=== PATIENT | female | born 1960 | race Caucasian/White ===

== ENCOUNTER 2020-02-12 08:46 | Outpatient (CLI) | payer OTHER, SELFPAY ==
[2020-02-12 09:15] LABS: Basophils Absolute Auto 0.1 K/mm3 (0.0-0.1); Basophils Percent Auto 0.8 % (0.2-1.2); Eosinophils Absolute Auto 0.1 K/mm3 (0-0.3); Eosinophils Percent Auto 2.1 % (0-4.4); Hematocrit 41.5 % (37.0-47.0); Hemoglobin 13.8 g/dL (12.0-15.0); Immature Granulocyte Absolute 0.02 K/mm3 (0.00-0.031); Immature Granulocyte Percent A 0.3 % (0-0.5); Lymphocytes Absolute Auto 1.99 K/mm3 (0.9-3.2); Lymphocytes Percent Auto 32.6 % (18.3-44.2); Mean Corpuscular HGB Conc 33.3 g/dl (32-36); Mean Corpuscular Hemoglobin 30.2 pg (26-34); Mean Corpuscular Volume 90.8 fl (80-100); Mean Platelet Volume 10.6 fl (7.4-10.4); Monocytes Absolute Auto 0.5 K/mm3 (0.1-0.6); Monocytes Percent Auto 7.7 % (2.6-8.5); Neutrophils Absolute Auto 3.5 K/mm3 (1.3-6.7); Neutrophils Percent Auto 56.5 % (45.5-73.1); Platelet Count Result 209 k/mm3 (150-375); Red Blood Count 4.57 M/mm3 (4.2-5.4); Red Cell Distribution Width 13.3 % (11.5-14.5); White Blood Count 6.1 K/mm3 (4.5-10.0)
[2020-02-12 09:20] LABS: Alanine Aminotransferase 17 U/L (4-35); Albumin Level 3.9 g/dL (3.5-5.1); Alkaline Phosphatase 107 U/L (38-126); Anion Gap 6 mmol/L (8-16); Aspartate Amino Transferase 24 U/L (14-36); Bilirubin,Total 0.5 mg/dL (0.2-1.3); Blood Urea Nitrogen 14 mg/dL (7-17); Calcium 9.5 mg/dL (8.4-10.2); Carbon Dioxide 29 mmol/L (22-30); Chloride 106 mmol/L (98-107); Cholesterol 262 mg/dL (0-200); Estimated Glomerular Filt Rate > 60; Glucose 99 mg/dL (65-105); HDL Direct 44 mg/dL; Potassium 3.9 mmol/L (3.4-5.0); Sodium 141 mmol/L (137-145); Triglycerides 121 mg/dL (<150)
[2020-02-12 09:31] LABS: LDL Cholesterol Direct 177 mg/dL
[2020-02-12 09:51] LABS: Thyroid Stimulating Hormone 0.131 uIU/mL (0.465-4.680)
[2020-02-12 10:02] LABS: Free T4 Free Thyroxine 1.14 ng/mL (0.78-2.19)
== END 2020-02-12 08:47 | disposition home or self-care (01) ==
PROVIDERS: PCP Family Medicine; Visit Provider Family Medicine
DX: R60.9 Edema, unspecified (principal); I10 Essential (primary) hypertension; F33.0 Major depressive disorder, recurrent, mild; E11.69 Type 2 diabetes mellitus with other specified complication; E78.2 Mixed hyperlipidemia; Z79.899 Other long term (current) drug therapy
CPT/HCPCS: 36415; 80053; 80061; 84439; 84443; 85025

== ENCOUNTER 2020-08-08 10:20 | Outpatient (CLI) | payer OTHER, SELFPAY ==
[2020-08-08 11:03] LABS: Alanine Aminotransferase 41 U/L (4-35); Aspartate Amino Transferase 39 U/L (14-36); Cholesterol 288 mg/dL (0-200); HDL Direct 47 mg/dL; Triglycerides 163 mg/dL (<150)
[2020-08-08 11:14] LABS: LDL Cholesterol Direct 203 mg/dL
== END 2020-08-08 10:21 | disposition home or self-care (01) ==
LOC: ANHLAB 10:22
PROVIDERS: PCP Family Medicine; Visit Provider Physician Assistant
DX: E78.5 Hyperlipidemia, unspecified (principal)
CPT/HCPCS: 36415; 80061; 84450; 84460

== ENCOUNTER 2021-09-24 10:46 | Outpatient (CLI) | payer OTHER, SELFPAY ==
[2021-09-24 11:56] LABS: Basophils Percent Auto 0.6 % (0.2-1.2); Eosinophils Absolute Auto 0.2 K/mm3 (0-0.3); Eosinophils Percent Auto 2.3 % (0-4.4); Hematocrit 41.4 % (37.0-47.0); Hemoglobin 13.1 g/dL (12.0-15.0); Immature Granulocyte Absolute 0.02 K/mm3 (0.00-0.031); Immature Granulocyte Percent A 0.3 % (0-0.5); Lymphocytes Absolute Auto 1.79 K/mm3 (0.9-3.2); Lymphocytes Percent Auto 27.5 % (18.3-44.2); Mean Corpuscular HGB Conc 31.6 g/dl (32-36); Mean Corpuscular Hemoglobin 29.2 pg (26-34); Mean Corpuscular Volume 92.2 fl (80-100); Mean Platelet Volume 11.2 fl (7.4-10.4); Monocytes Absolute Auto 0.5 K/mm3 (0.1-0.6); Monocytes Percent Auto 7.1 % (2.6-8.5); Neutrophils Absolute Auto 4.1 K/mm3 (1.3-6.7); Neutrophils Percent Auto 62.2 % (45.5-73.1); Platelet Count Result 264 k/mm3 (150-375); Red Blood Count 4.49 M/mm3 (4.2-5.4); Red Cell Distribution Width 12.4 % (11.5-14.5); White Blood Count 6.5 K/mm3 (4.5-10.0)
[2021-09-24 12:06] LABS: Alanine Aminotransferase 17 U/L (6-35); Albumin Level 3.8 g/dL (3.5-5.1); Alkaline Phosphatase 89 U/L (38-126); Anion Gap 3 mmol/L (8-16); Aspartate Amino Transferase 24 U/L (14-36); Bilirubin,Total 0.4 mg/dL (0.2-1.3); Blood Urea Nitrogen 7 mg/dL (7-17); Calcium 9.1 mg/dL (8.4-10.2); Carbon Dioxide 30 mmol/L (22-30); Chloride 105 mmol/L (98-107); Cholesterol 218 mg/dL (0-200); Estimated Glomerular Filt Rate > 60; Glucose 94 mg/dL (65-110); HDL Direct 40 mg/dL; Potassium 4.4 mmol/L (3.4-5.0); Sodium 138 mmol/L (137-145); Triglycerides 91 mg/dL (<150)
[2021-09-24 12:18] LABS: LDL Cholesterol Direct 132 mg/dL
[2021-09-24 12:36] LABS: Thyroid Stimulating Hormone < 0.015 uIU/mL (0.465-4.680)
[2021-09-24 12:40] LABS: Free T4 Free Thyroxine 2.49 ng/mL (0.78-2.19)
== END 2021-09-24 10:47 | disposition home or self-care (01) ==
LOC: ANHLAB 10:48
PROVIDERS: PCP Family Medicine; Visit Provider Family Medicine
DX: E03.9 Hypothyroidism, unspecified (principal); E78.5 Hyperlipidemia, unspecified; I10 Essential (primary) hypertension; Z79.899 Other long term (current) drug therapy
CPT/HCPCS: 36415; 80053; 80061; 84439; 84443; 85025

== ENCOUNTER 2021-11-12 09:48 | Outpatient (CLI) | payer OTHER, SELFPAY ==
[2021-11-12 10:46] LABS: Thyroid Stimulating Hormone 0.042 uIU/mL (0.465-4.680)
[2021-11-12 11:01] LABS: Free T4 Free Thyroxine 1.28 ng/mL (0.78-2.19)
== END 2021-11-12 09:49 | disposition home or self-care (01) ==
LOC: ANHLAB 09:50
PROVIDERS: PCP Family Medicine; Visit Provider Family Medicine
DX: E03.9 Hypothyroidism, unspecified (principal)
CPT/HCPCS: 36415; 84439; 84443

== ENCOUNTER 2022-03-27 09:58 | Outpatient (CLI) | payer OTHER, SELFPAY ==
[2022-03-27 10:23] LABS: Alanine Aminotransferase 16 U/L (6-35); Alkaline Phosphatase 97 U/L (38-126); Anion Gap 12 mmol/L (8-16); Aspartate Amino Transferase 22 U/L (14-36); Bilirubin,Total 0.7 mg/dL (0.2-1.3); Blood Urea Nitrogen 11 mg/dL (7-17); Calcium 9.5 mg/dL (8.4-10.2); Carbon Dioxide 28 mmol/L (22-30); Chloride 99 mmol/L (98-107); Cholesterol 225 mg/dL (0-200); Estimated Glomerular Filt Rate 57; Glucose 97 mg/dL (65-110); HDL Direct 45 mg/dL; Potassium 3.5 mmol/L (3.4-5.0); Sodium 139 mmol/L (137-145); Triglycerides 85 mg/dL (<150)
[2022-03-27 10:34] LABS: LDL Cholesterol Direct 135 mg/dL
[2022-03-27 10:52] LABS: Thyroid Stimulating Hormone 0.039 uIU/mL (0.465-4.680)
[2022-03-27 11:18] LABS: Free T4 Free Thyroxine 1.33 ng/mL (0.78-2.19)
== END 2022-03-27 09:59 | disposition home or self-care (01) ==
PROVIDERS: PCP Family Medicine; Visit Provider Physician Assistant
DX: E78.5 Hyperlipidemia, unspecified (principal); E03.9 Hypothyroidism, unspecified; Z79.899 Other long term (current) drug therapy
CPT/HCPCS: 36415; 80053; 80061; 84439; 84443

== ENCOUNTER 2022-09-04 11:22 | Outpatient (CLI) | payer MEDICARE, SELFPAY ==
[2022-09-08 11:49] LABS: NIL 0.03 IU/mL; Quantiferon TB Plus, 1T NEGATIVE (NEGATIVE); TB1-NIL 0.03 IU/mL
== END 2022-09-04 11:23 | disposition home or self-care (01) ==
PROVIDERS: PCP Family Medicine
DX: L40.0 Psoriasis vulgaris (principal); Z79.899 Other long term (current) drug therapy
CPT/HCPCS: 36415; 86480

== ENCOUNTER 2022-10-26 08:38 | Outpatient (CLI) | payer MEDICARE, SELFPAY ==
[2022-10-26 14:20] LABS: Basophils Absolute Auto 0.1 K/mm3 (0.0-0.1); Eosinophils Absolute Auto 0.2 K/mm3 (0-0.3); Eosinophils Percent Auto 2.7 % (0-4.4); Hematocrit 42.3 % (37.0-47.0); Hemoglobin 13.5 g/dL (12.0-15.0); Immature Granulocyte Absolute 0.02 K/mm3 (0.00-0.031); Immature Granulocyte Percent A 0.3 % (0-0.5); Lymphocytes Absolute Auto 2.31 K/mm3 (0.9-3.2); Lymphocytes Percent Auto 29.9 % (18.3-44.2); Mean Corpuscular HGB Conc 31.9 g/dl (32-36); Mean Corpuscular Hemoglobin 30.9 pg (26-34); Mean Corpuscular Volume 96.8 fl (80-100); Mean Platelet Volume 11.2 fl (7.4-10.4); Monocytes Absolute Auto 0.6 K/mm3 (0.1-0.6); Monocytes Percent Auto 7.6 % (2.6-8.5); Neutrophils Absolute Auto 4.5 K/mm3 (1.3-6.7); Neutrophils Percent Auto 58.5 % (45.5-73.1); Platelet Count Result 246 k/mm3 (150-375); Red Blood Count 4.37 M/mm3 (4.2-5.4); Red Cell Distribution Width 13.3 % (11.5-14.5); White Blood Count 7.7 K/mm3 (4.5-10.0)
[2022-10-26 15:23] LABS: Free T4 Free Thyroxine 1.16 ng/mL (0.78-2.19); Vitamin D 25 Hydroxy 27.8 ng/mL
[2022-10-26 16:16] LABS: Alanine Aminotransferase 20 U/L (6-35); Albumin Level 3.7 g/dL (3.5-5.1); Alkaline Phosphatase 81 U/L (38-126); Anion Gap 3 mmol/L (8-16); Aspartate Amino Transferase 33 U/L (14-36); Bilirubin,Total 0.5 mg/dL (0.2-1.3); Blood Urea Nitrogen 15 mg/dL (7-17); Calcium 8.7 mg/dL (8.4-10.2); Carbon Dioxide 32 mmol/L (22-30); Chloride 103 mmol/L (98-107); Cholesterol 209 mg/dL (0-200); Estimated Glomerular Filt Rate > 60; Glucose 79 mg/dL (65-110); HDL Direct 46 mg/dL; Potassium 3.8 mmol/L (3.4-5.0); Sodium 138 mmol/L (137-145); Triglycerides 77 mg/dL (<150)
[2022-10-26 16:27] LABS: LDL Cholesterol Direct 136 mg/dL
== END 2022-10-26 08:39 | disposition home or self-care (01) ==
LOC: ANHGOSHLAB 08:39
PROVIDERS: PCP Internal Medicine; Visit Provider Clinical Nurse Specialist
DX: I10 Essential (primary) hypertension (principal); E78.5 Hyperlipidemia, unspecified; E03.9 Hypothyroidism, unspecified; E55.9 Vitamin D deficiency, unspecified
CPT/HCPCS: 36415; 80053; 80061; 82306; 84439; 84443; 85025

== ENCOUNTER 2022-12-28 10:21 | Outpatient (CLI) | payer MEDICARE, SELFPAY | END 2022-12-28 10:22 | disposition home or self-care (01) | PROVIDERS: PCP Internal Medicine; Visit Provider Clinical Nurse Specialist | DX: E03.9 Hypothyroidism, unspecified (principal) | CPT/HCPCS: 36415; 84443 ==

== ENCOUNTER 2023-10-25 07:00 | Outpatient (NON) | payer MEDICARE, SELFPAY | END 2023-10-25 07:01 | disposition home or self-care (01) | LOC: ANHLAB 10-26 11:57 | PROVIDERS: PCP Clinical Nurse Specialist; Visit Provider Internal Medicine Gastroenterology | DX: Z12.11 Encounter for screening for malignant neoplasm of colon (principal) | CPT/HCPCS: 88305 ==

== ENCOUNTER 2023-10-25 08:59 | Day surgery (SDC) | payer MEDICARE, SELFPAY ==
[2023-10-08 11:01] VITALS: BMI 24.0
[2023-10-18 11:51] VITALS: BMI 25.8
[2023-10-25 09:42] VITALS: BP 116/67; PULSE 63; RESP 16; TEMP 36.8; O2SAT 99
[2023-10-25] MEDS: LACTATED RINGERS 1,000 ML 150 ML IV CONT (09:45)
--- NOTE | 2023-10-25 10:27 | WPDANESEPPF ---
Anes - Initial Pre Proc Eval Procedure: Operation Date: 10/25/23 11:00 Proposed Procedures p Screening Colonoscopy - Jaime Sterling MD Date/Time: 10/25/23 10:27 Surgeon: Jaime Sterling MD Pre Op Diagnosis: Neoplasm Screening Patient Data Age: 62 Gender: F Height: 1.55 m Weight: 62.3 kg Last Vital Signs Temp 36.8 C 10/25/23 09:42 Pulse 63 10/25/23 09:42 Resp 16 10/25/23 09:42 BP 116/67 10/25/23 09:42 Pulse Ox 99 10/25/23 09:42 O2 Del Method Room Air 10/25/23 09:42 Allergies Allergy/AdvReac Type Severity Reaction Status Date / Time No Known Allergies Allergy Mild Verified 10/25/23 09:40 Home Medications Medication Instructions Recorded Confirmed Type fluoxetine 10 mg capsule (Prozac) 10 mg PO DAILY #90 caps 07/26/23 10/18/23 Rx losartan 50 mg-hydrochlorothiazide 1 tablet PO DAILY #90 tabs 07/26/23 10/25/23 Rx 12.5 mg tablet levothyroxine 75 mcg tablet 75 mcg PO DAILY #90 tabs 09/21/23 10/18/23 Rx apremilast 30 mg tablet (Otezla) 30 mg PO BID 10/18/23 10/18/23 History simvastatin 40 mg tablet 40 mg PO DAILY 10/25/23 10/25/23 History Patient hx anesthesia problems: none Family hx anesthesia problems: none Results Review: All pre-operative results and documents have been reviewed as part of the pre-operative evaluation. [facility] Past Medical History Medical History Breast cancer HTN (hypertension) Hyperlipidemia Smoker Surgical History Surgical History H/O mastectomy History of bilateral breast implants Family History Family History Mother Cerebrovascular accident, Onset Age: 67 Father Cerebrovascular accident, Onset Age: 75 Other Family history of cardiovascular disease Family history of elevated blood lipids Family history of malignant neoplasm of breast Social History Social History Social History: Caffeine-soda Years smoked: 30 Smoking status: Never smoker Tobacco type: cigarettes Alcohol intake: never Alcohol use details: rarely Substance use: never Substance use type: does not use Lack of Transportation: No Lack of Food: Never True Current Housing: I Have Housing Concerned About Future Housing: No Difficulty Paying Gas/Electric Bills: No Difficulty Paying for Meds: No Currently Unemployed: No Education: High School Diploma/GED Difficulty w/ Childcare or Family Care: No Living arrangements: with family Spiritual care concerns: No Anes - Eval Final PreProcedure Day of Procedure 10/25/23 10:27 Patient weight: normal Heart: regular rate and rhythm Lungs: clear to auscultation Airway: Mallampati scale class II Neurological: alert and oriented Last oral intake: >/= 8 hours ASA classification: III Emergent: no Anesthetic plan: proceed Anesthesia type and monitoring: general GIVS and standard monitoring Results Review: All pre-operative results and documents have been reviewed as part of the pre-operative evaluation. Informed Consent: The patient's anesthetic plan and its attendant risks and benefits were discussed with the patient/family/POA. Questions were solicited and answers provided to the satisfaction of the patient/family/POA.
--- NOTE | 2023-10-25 10:31 | PM.HPGS ---
History of Present Illness History of Present Illness Consent: Risks, benefits, and alternatives have been discussed and questions answered. Patient agrees to proceed with procedure. Chief complaint: Neoplasm Screening Narrative: Virginia Arnett is a 62 year old female referred for colon cancer screening. Review of Systems Review of Systems: All systems reviewed & are unremarkable except as noted in HPI and below PMFSH Past Medical History Medical History Breast cancer HTN (hypertension) Hyperlipidemia Smoker Surgical History Surgical History H/O mastectomy History of bilateral breast implants Family History Family History Mother Cerebrovascular accident, Onset Age: 67 Father Cerebrovascular accident, Onset Age: 75 Other Family history of cardiovascular disease Family history of elevated blood lipids Family history of malignant neoplasm of breast Social History Social History Social History: Caffeine-soda Years smoked: 30 Smoking status: Never smoker Tobacco type: cigarettes Alcohol intake: never Alcohol use details: rarely Substance use: never Substance use type: does not use Lack of Transportation: No Lack of Food: Never True Current Housing: I Have Housing Concerned About Future Housing: No Difficulty Paying Gas/Electric Bills: No Difficulty Paying for Meds: No Currently Unemployed: No Education: High School Diploma/GED Difficulty w/ Childcare or Family Care: No Living arrangements: with family Spiritual care concerns: No Meds Home Medications and Allergies Home Medications Medication Instructions Recorded Confirmed Type fluoxetine 10 mg capsule (Prozac) 10 mg PO DAILY #90 caps 07/26/23 10/18/23 Rx losartan 50 mg-hydrochlorothiazide 1 tablet PO DAILY #90 tabs 07/26/23 10/25/23 Rx 12.5 mg tablet levothyroxine 75 mcg tablet 75 mcg PO DAILY #90 tabs 09/21/23 10/18/23 Rx apremilast 30 mg tablet (Otezla) 30 mg PO BID 10/18/23 10/18/23 History simvastatin 40 mg tablet 40 mg PO DAILY 10/25/23 10/25/23 History Allergies Allergy/AdvReac Type Severity Reaction Status Date / Time No Known Allergies Allergy Mild Verified 10/25/23 09:40 Vital Signs Vital Signs - 24 hr 10/25/23 09:42 Temperature 36.8 C Pulse Rate 63 Respiratory Rate 16 Blood Pressure 116/67 Pulse Oximetry 99 Oxygen Delivery Room Air Exam Resp: Auscultation: clear to auscultation bilaterally Cardio: Rate: regular rate Rhythm: regular rhythm GI: GI Palp: Yes Soft to palpation and No Tenderness to palpation present (GI) Assessment and Plan Assessment and plan (1) Screening for colon cancer: Code(s): Z12.11 - Encounter for screening for malignant neoplasm of colon Status: Acute Assessment and Plan: Colonoscopy with possible biopsy or polypectomy or cautery or injection of substances.
[2023-10-25 11:26] VITALS: BP 85/49; PULSE 57; RESP 16; O2SAT 99
[2023-10-25 11:31] VITALS: BP 97/53; PULSE 50; RESP 16; O2SAT 99
--- NOTE | 2023-10-25 11:34 | WPDANESPN ---
Anes - Prog Note Post-Op Date/Time: 10/25/23 11:34 Cardiovascular status: normal Respiratory status: normal Airway patency: baseline Mental status: baseline Vital Signs: Last Vital Signs Temp 36.8 C 10/25/23 09:42 Pulse 63 10/25/23 09:42 Resp 16 10/25/23 09:42 BP 116/67 10/25/23 09:42 Pulse Ox 99 10/25/23 09:42 O2 Del Method Room Air 10/25/23 09:42 Pain Score (VAS): 0/10 I/O: Intake & Output 10/24/23 10/25/23 10/25/23 23:59 07:59 15:59 Intake Total 200 Balance 200 Patient Feedback: Patient satisfied with anesthetic care.
[2023-10-25 11:36] VITALS: BP 108/61; PULSE 55; RESP 16; O2SAT 99
== END 2023-10-25 12:05 | disposition home or self-care (01) ==
PROVIDERS: PCP Clinical Nurse Specialist; Visit Provider Internal Medicine Gastroenterology
PROC: 0DJD8ZZ Inspection of Lower Intestinal Tract, Via Natural or Artificial Opening Endoscopic (ICD-10-PCS; CPT 45378; principal; 2023-10-25 11:00)
DX: Z12.11 Encounter for screening for malignant neoplasm of colon (principal); D12.3 Benign neoplasm of transverse colon; K64.8 Other hemorrhoids
CPT/HCPCS: 45380

== ENCOUNTER 2023-10-28 10:06 | Outpatient (CLI) | payer MEDICARE, SELFPAY ==
[2023-10-28 10:27] LABS: Basophils Percent Auto 0.6 % (0.2-1.2); Eosinophils Absolute Auto 0.1 K/mm3 (0-0.3); Eosinophils Percent Auto 2.2 % (0-4.4); Hematocrit 39.5 % (37.0-47.0); Hemoglobin 13.1 g/dL (12.0-15.0); Immature Granulocyte Absolute 0.02 K/mm3 (0.00-0.031); Immature Granulocyte Percent A 0.3 % (0-0.5); Lymphocytes Absolute Auto 1.98 K/mm3 (0.9-3.2); Lymphocytes Percent Auto 31.3 % (18.3-44.2); Mean Corpuscular HGB Conc 33.2 g/dl (32-36); Mean Corpuscular Hemoglobin 29.7 pg (26-34); Mean Corpuscular Volume 89.6 fl (80-100); Mean Platelet Volume 10.3 fl (7.4-10.4); Monocytes Absolute Auto 0.6 K/mm3 (0.1-0.6); Monocytes Percent Auto 9.2 % (2.6-8.5); Neutrophils Absolute Auto 3.6 K/mm3 (1.3-6.7); Neutrophils Percent Auto 56.4 % (45.5-73.1); Platelet Count Result 266 k/mm3 (150-375); Red Blood Count 4.41 M/mm3 (4.2-5.4); Red Cell Distribution Width 12.6 % (11.5-14.5); White Blood Count 6.3 K/mm3 (4.5-10.0)
[2023-10-28 10:36] LABS: Alanine Aminotransferase 15 U/L (6-35); Albumin Level 4.3 g/dL (3.5-5.1); Alkaline Phosphatase 90 U/L (38-126); Anion Gap 4 mmol/L (4-12); Aspartate Amino Transferase 22 U/L (14-36); Bilirubin,Total 0.5 mg/dL (0.2-1.3); Blood Urea Nitrogen 14 mg/dL (7-17); Calcium 9.4 mg/dL (8.4-10.2); Carbon Dioxide 28 mmol/L (22-30); Chloride 101 mmol/L (98-107); Cholesterol 171 mg/dL (0-200); Estimated Glomerular Filt Rate > 60; Glucose 97 mg/dL (65-110); HDL Direct 54 mg/dL; Potassium 3.9 mmol/L (3.4-5.0); Sodium 133 mmol/L (137-145); Triglycerides 83 mg/dL (<150)
[2023-10-28 10:45] LABS: Hemoglobin A1C 5.3 % (<5.7)
[2023-10-28 10:47] LABS: LDL Cholesterol Direct 93 mg/dL
[2023-10-28 11:06] LABS: Thyroid Stimulating Hormone 0.228 uIU/mL (0.465-4.680)
== END 2023-10-28 10:07 | disposition home or self-care (01) ==
PROVIDERS: PCP Clinical Nurse Specialist; Visit Provider Clinical Nurse Specialist
DX: E03.9 Hypothyroidism, unspecified (principal); I10 Essential (primary) hypertension; Z13.228 Encounter for screening for other metabolic disorders; R73.9 Hyperglycemia, unspecified
CPT/HCPCS: 36415; 80053; 80061; 83036; 84443; 85025

== ENCOUNTER 2023-11-27 11:02 | Outpatient (CLI) | payer MEDICARE, SELFPAY ==
[2023-11-27 12:11] LABS: Anion Gap 7 mmol/L (4-12); Blood Urea Nitrogen 13 mg/dL (7-17); Calcium 9.1 mg/dL (8.4-10.2); Carbon Dioxide 27 mmol/L (22-30); Chloride 102 mmol/L (98-107); Estimated Glomerular Filt Rate > 60; Glucose 98 mg/dL (65-110); Potassium 3.7 mmol/L (3.4-5.0); Sodium 136 mmol/L (137-145)
[2023-11-27 12:41] LABS: Thyroid Stimulating Hormone 0.237 uIU/mL (0.465-4.680)
[2023-11-27 13:00] LABS: Free T4 Free Thyroxine 1.27 ng/mL (0.78-2.19)
== END 2023-11-27 11:03 | disposition home or self-care (01) ==
LOC: ANHLAB 11:04
PROVIDERS: PCP Clinical Nurse Specialist; Visit Provider Clinical Nurse Specialist
DX: I10 Essential (primary) hypertension (principal); E03.9 Hypothyroidism, unspecified
CPT/HCPCS: 36415; 80048; 84439; 84443

== ENCOUNTER 2024-05-15 11:23 | Outpatient (CLI) | payer MEDICARE, SELFPAY ==
[2024-05-15 12:11] LABS: Free T4 Free Thyroxine 0.81 ng/dL (0.78-2.19)
== END 2024-05-15 11:24 | disposition home or self-care (01) ==
PROVIDERS: PCP Clinical Nurse Specialist; Visit Provider Clinical Nurse Specialist
DX: E03.9 Hypothyroidism, unspecified (principal)
CPT/HCPCS: 36415; 84439; 84443

== ENCOUNTER 2024-06-23 11:49 | Outpatient (CLI) | payer MEDICARE, SELFPAY ==
--- OUTSIDE RECORDS SUMMARY | 2024-06-23 11:53 | XMS_ITS | Clinical Summary ---
Author Organization [facility] Address [address] [place] [address] Care Team Providers Care Process Engineering Intern Name Role Phone Brian Austin MD Primary Care Provider [phone] Allergies No known active allergies Medications FLUOXETINE 10 mg capsule TK 1 C PO QD 5 10/06/2017 Activ e losartan-hydroC HLOROthiazide (HYZAAR) 50-12.5 mg per tablet 07/20/2016 Active simvastatin (ZOCOR) 40 mg tablet 07/20/2016 Active clobetasol-emol lient (TEMOVATE E) 0.05 % cream 08/06/2016 Act eligio levothyroxine (SYNTHROID, LEVOTHROID) 100 mcg tablet Take 100 mcg by mouth in store marketing representative before breakfast. Active Active Problems Problem Noted Date Diagnosed Date History of malignant neoplasm of breast 10/07/19 17 S/P breast reconstruction 11/21/2015 Malignant neoplasm of lower- outer quadrant of right female breast 08/08/2015 Surgical History Surgery Date Site/Laterality Comments US UNLISTED PROCEDURE LYMPH SYSTEM 09/16/2015 N/A COLONOSCOPY BREAST BIOPSY BREAST RECONSTRUCTION BREAST LUMPECTOMY Medical History Medical History Date Comments Breast cancer (HCC) Family History Medical History Relation Name Comments Lung cancer Maternal Grandmother Breast cancer Maternal Great-Grandmother Relation Name Status Comments Maternal Grandmother Maternal Great-Grandmother Social History Tobacco Use Types Packs/Day Years Used Date Smoking Tobacco: Some Days Cigarettes 0.2 30 Smokeless Tobacco: Never Tobacco Cessation:Ready to Q uit: Yes Alcohol Use Standard Drinks/Week Comments Yes 0 (1 standard drink = 0.6 oz pur e alcohol) rare AUDIT-C Answer Date Recorded Q1: How often do you have a drink containing alc ohol? Never 05/14/2021 Average Number of Drinks Not on file 022 Frequency of Binge Drinking Not on file 09/2021 Comments No Sex and Gender Information Value Date Recorded Sex Assigned at Not on file Legal Sex Female 2:34 AM LABEL OPERATOR Gender Identity Female 11/17/2017 11:02 AM CDT Sexual Orientation Not on file Obstetrics History Last Filed Vital Signs Vital Sign Reading Time Taken Comments Blood Pressure 126/79 05/14/2021 1:57 PM LABEL OPERATOR Pulse 70 05/14/2021 1:57 PM LABEL OPERATOR Temperature 36.6 C (97.9 F) 05/14/2021 1:57 PM LABEL OPERATOR Respiratory Rate 16 05/14/2021 1:57 PM LABEL OPERATOR Oxygen Saturation 98% 05/14/2021 1:57 PM LABEL OPERATOR Inhaled Oxygen Concentration - - Weight 64.4 kg (142 lb) 05/14/2021 1:57 PM LABEL OPERATOR w ith shoes Height 154.9 cm (5' 1 ) 05/14/2021 1:57 PM LABEL OPERATOR Body Mass Index 26.83 05/14/2021 1:57 PM LABEL OPERATOR Plan of Treatment Health Maintenance Due Date Last Done Comments Cervical Cancer Screening 1961 Colon Cancer Screening-Colonoscopy 1961 Depression Screening 1961 Pneumococcal vaccine <65 (1 of 2 - PCV) 11/11/1967 Hepatitis B Screening 11/11/1979 Regular Well Visit/Exam 18-64 11/11/1979 Zoster Vaccine (1 of 2) 11/11/2011 Breast Cancer Screening-Mammogram 07/29/2016 016 Covid-19 Vaccine ( season) 01/09/202411/2020, 12/17/2020 Influenza Vaccine (#1) 2024 DTaP/Tdap/Td Vaccine (2 - Td or Tdap) 04/14/203110/2020 Hepatitis C Screening Completed 12/02/2020 Procedures Procedure Name Priority Date/Time Associated Diagnosis Comments HEPATITIS C ANTIBODY Routine 12/02/2020 10:44 AM CDT Psoriasis vulgaris High risk medication use DIAGNOSTIC MAMMOGRAM BILATERAL W ANGEL Routine 07/30/2015 9:57 AM CDT from Last 3 Months or Most Recently Relevant to Health Maintenance Results * Hepatitis C antibody (12/02/2020 10:44 AM CDT) Hep C Ab Nonreactive Nonreactive FLORES SAINI Comment:Antibodies to HCV no t detected. Does NOT exclude the possibility of recent exposure to HCV. Blood specimen (specimen) 12/02/2020 10:44 AM CDT 12/02/2020 11:20 AM CDT us Smith Navarro MD LAB MICROBIOLOGY - GEN ERAL ORDERABLES Edited Result - Final [facility] Department [place] [address] * Diagnostic Mammogram Bilateral W Angel (07/30/2015 9:57 AM CDT) Anatomical Region Laterality Modality Breast Bilateral Mammography 07/30/2015 9:57 AM CDT Narrative 07/30/2015 11:56 AM CDT SUNSHINE JUÁREZ M.D. ANDER CERNA M.D. FINAL REPORT The radiology attending physician has personally reviewed this study, and has reviewed and/or edited this written report and agrees with it. ACC# Date Time Exam [id number] Jul 30, 2015 09:57:00 [facility] [id number] Dig Breast Angel Zander Technologist(s): Katie Reynoso; ; [id number] Jul 30, 2015 09:57:00 [facility] [id number] Diag Mammogram Bilateral Technologist(s): Katie Reynoso; ; [id number] Jul 30, 2015 10:18:00 [facility] [id number] Breast US unilateral, ltd R ACC# Date Time Exam [id number] Jul 30, 2015 09:57:00 [facility] [id number] Dig Breast Angel Zander Technologist(s): Katie Reynoso; ; [id number] Jul 30, 2015 09:57:00 [facility] [id number] Diag Mammogram Bilateral Technologist(s): Katie Reynoso; ; [id number] Jul 30, 2015 10:18:00 [facility] [id number] Breast US unilateral, ltd R EXAMINATION: BILATERAL FULL FIELD DIGITAL DIAGNOSTIC MAMMOGRAM WITH DIGITAL BREAST TOMOSYNTHESIS AND RIGHT BREAST SONOGRAM HISTORY: 54-year-old woman with history of invasive ductal carcinoma in 2004 treated with breast conservation therapy including radiation and chemotherapy presenting with an abnormal mammogram from another institution demonstrating focal asymmetry in the right breast, grouped microcalcifications in the right breast and questionable architectural distortion in the left breast on the MLO view only (see my consultation report from earlier today). MAMMOGRAM TECHNIQUE: Full field digital craniocaudal and mediolateral oblique views were obtained. Digital breast tomosynthesis was performed and reviewed as a part of this examination. COMPARISON: Outside Hospital mammograms dated 07/18/2015, 07/11/2015, 04/13/2014, and 04/05/2013 BREAST PARENCHYMAL COMPOSITION: There are scattered areas of fibroglandular density. MAMMOGRAM FINDINGS: There is a persistent focal asymmetry with indistinct margins in the far posterior centrolateral right breast at the 7 o'clock position. This appears somewhat mass like on the craniocaudal projection. It is noted entirely included on the [id number] in either projection. Changes of prior breast conservation therapy are identified in the right breast parenchyma. There is a 4 mm group of round and pleomorphic microcalcifications in the upper outer right breast. There is no abnormality in the left breast. Specifically, the previously described architectural distortion represents superimposed fibroglandular tissue on the tomosynthesis views. SONOGRAM FINDINGS: Directed sonogram of the lower outer quadrant of the right breast was performed. There is a 1.4 x 1.3 x 1.1 cm irregular mass with angular margins in the 7 o'clock position of the right breast, 5 cm from the nipple. This corresponds with the mammographic focal asymmetry described above. It is separate from the prior lumpectomy site, which is located at 7:00, 2 cm from the nipple. No abnormal lymph nodes are identified within the right axilla. Of note, the patient has had prior right axillary omar dissection. IMPRESSION: 1. Right breast 1.4 x 1.3 x 1.1 cm mass is suspicious for malignancy and ultrasound guided biopsy is recommended. 2. Grouped microcalcifications in the right breast are mildly suspicious for malignancy. Stereotactic core biopsy is deferred at this time until after the results of the mass biopsy as discussed with Dr. Calvo by Dr. Juárez. 3. No abnormality within the left breast or right axilla. The above findings and recommendations were discussed with the patient at the conclusion of the examination and were subsequently discussed with Dr. Calvo by Dr. Juárez on 07/30/2015 at the time of this examination. The patient has been scheduled to return to the [facility] for an ultrasound-guided core needle biopsy of the right breast on 07/31/2015 at 9:30 a.m.. OVERALL FINAL ASSESSMENT: BI-RADS Category 4C: Suspicious abnormality. High suspicion for malignancy. Requested By: Dictated By: ANDER CERNA M.D. on Jul 30 2015 11:47A This document has been electronically signed by: SUNSHINE JUÁREZ M.D. on Jul 30 2015 11:56A [id number] Procedure Note Provider, MD Renetta - 09/13/2016 SUNSHINE JUÁREZ M.D. ANDER CERNA M.D. FINAL REPORT The radiology attending physician has personally reviewed this study, and has reviewed and/or edited this written report and agrees with it. ACC# Date Time Exam [id number] Jul 30, 2015 09:57:00 [facility] [id number] Dig Breast Angel Zander Technologist(s): Katie Reynoso; ; [id number] Jul 30, 2015 09:57:00 [facility] 60013 Diag Mammogram Bilateral Technologist(s): Katie Reynoso; ; [id number] Jul 30, 2015 10:18:00 [facility] [id number] Breast US unilateral, ltd R ACC# Date Time Exam [id number] Jul 30, 2015 09:57:00 [facility] [id number] Dig Breast Angel Zander Technologist(s): Katie Reynoso; ; [id number] Jul 30, 2015 09:57:00 [facility] 13300 Diag Mammogram Bilateral Technologist(s): Katie Reynoso; ; [id number] Jul 30, 2015 10:18:00 [facility] [id number] Breast US unilateral, ltd R EXAMINATION: BILATERAL FULL FIELD DIGITAL DIAGNOSTIC MAMMOGRAM WITH DIGITAL BREAST TOMOSYNTHESIS AND RIGHT BREAST SONOGRAM HISTORY: 54-year-old woman with history of invasive ductal carcinoma in 2004 treated with breast conservation therapy including radiation and chemotherapy presenting with an abnormal mammogram from another institution demonstrating focal asymmetry in the right breast, grouped microcalcifications in the right breast and questionable architectural distortion in the left breast on the MLO view only (see my consultation report from earlier today). MAMMOGRAM TECHNIQUE: Full field digital craniocaudal and mediolateral oblique views were obtained. Digital breast tomosynthesis was performed and reviewed as a part of this examination. COMPARISON: Outside Hospital mammograms dated 07/18/2015, 07/11/2015, 04/13/2014, and 04/05/2013 BREAST PARENCHYMAL COMPOSITION: There are scattered areas of fibroglandular density. MAMMOGRAM FINDINGS: There is a persistent focal asymmetry with indistinct margins in the far posterior centrolateral right breast at the 7 o'clock position. This appears somewhat mass like on the craniocaudal projection. It is noted entirely included on the [id number] in either projection. Changes of prior breast conservation therapy are identified in the right breast parenchyma. There is a 4 mm group of round and pleomorphic microcalcifications in the upper outer right breast. There is no abnormality in the left breast. Specifically, the previously described architectural distortion represents superimposed fibroglandular tissue on the tomosynthesis views. SONOGRAM FINDINGS: Directed sonogram of the lower outer quadrant of the right breast was performed. There is a 1.4 x 1.3 x 1.1 cm irregular mass with angular margins in the 7 o'clock position of the right breast, 5 cm from the nipple. This corresponds with the mammographic focal asymmetry described above. It is separate from the prior lumpectomy site, which is located at 7:00, 2 cm from the nipple. No abnormal lymph nodes are identified within the right axilla. Of note, the patient has had prior right axillary omar dissection. IMPRESSION: 1. Right breast 1.4 x 1.3 x 1.1 cm mass is suspicious for malignancy and ultrasound guided biopsy is recommended. 2. Grouped microcalcifications in the right breast are mildly suspicious for malignancy. Stereotactic core biopsy is deferred at this time until after the results of the mass biopsy as discussed with Dr. Calvo by Dr. Juárez. 3. No abnormality within the left breast or right axilla. The above findings and recommendations were discussed with the patient at the conclusion of the examination and were subsequently discussed with Dr. Calvo by Dr. Juárez on 07/30/2015 at the time of this examination. The patient has been scheduled to return to the [facility] for an ultrasound-guided core needle biopsy of the right breast on 07/31/2015 at 9:30 a.m.. OVERALL FINAL ASSESSMENT: BI-RADS Category 4C: Suspicious abnormality. High suspicion for malignancy. Requested By: Dictated By: ANDER CERNA M.D. on Jul 30 2015 11:47A This document has been electronically signed by: SUNSHINE JUÁREZ M.D. on Jul 30 2015 11:56A [id number] [facility] Provider MD [facility] MAMMO PROCEDURES Stefani l Result from Last 3 Months or Most Recently Relevant to Health Maintenance Insurance [employer] [facility] [employer] H[employer] Care Teams Process Engineering Intern Relationship Specialty Start Date End Date Brian Austin MD [address] [place] [address] PCP - General 08/12/16
--- OUTSIDE RECORDS SUMMARY | 2024-06-23 11:53 | XMS_ITS | Clinical Summary ---
Author Organization [facility] Address [address] [place] [address] Phone Care Team Providers Care Purse Maker Name Role Phone Unavailable Primary Care Provider Unavailabl e Social History Tobacco Use Types Packs/Day Years Used Date Smoking Tobacco: Never Assessed Comments Unknown Sex and Gender Information Value Date Recorded Sex Assigned at Not on file Legal Sex Female 8:29 AM ACCOUNT REPRESENTATIVE Gender Identity Not on file Sexual Orientation Not on file Plan of Treatment Health Maintenance Due Date Last Done Comments DTAP/TDAP/TD VACCINES (1 - Tdap) 1980 CERVICAL CANCER SCREENING 11/11/1991 BREAST CANCER SCREENING 2001 COLORECTAL SCREENING 2006 Colorectal Cancer Screening 2006 FIT-DNA Q 3 years 2006 FIT/FOBT Q 1 year 2006 Flex Sig/CT Colonography Q 5 years 2006 ZOSTER VACCINE (1 of 2) 11/11/2011 INFLUENZA VACCINE (#1) 2023 RSV VACCINE (60+ or ) (1 - 1-dose 75+ series) 2036
--- OUTSIDE RECORDS SUMMARY | 2024-06-23 11:53 | XMS_ITS | Referral Summary ---
Author Organization [facility] Address [address] [facility] [place] [address] Care Team Providers Care Childcare Worker Name Role Phone Brian Austin MD Primary Care Provider [phone] Allergies No known active allergies Medications FLUOXETINE 10 mg capsule TK 1 C PO QD 5 10/06/2017 Activ e losartan-hydroC HLOROthiazide (HYZAAR) 50-12.5 mg per tablet 07/20/2016 Active simvastatin (ZOCOR) 40 mg tablet 07/20/2016 Active clobetasol-emol lient (TEMOVATE E) 0.05 % cream 08/06/2016 Act eligio levothyroxine (SYNTHROID, LEVOTHROID) 100 mcg tablet 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 Gender Identity Female 11/17/2017 11:02 AM CDT Sexual Orientation Not on file Last Filed Vital Signs Vital Sign Reading Time Taken Comments Blood Pressure 126/79 05/14/2021 1:57 PM CAR STORER Pulse 70 05/14/2021 1:57 PM CAR STORER Temperature 36.6 C (97.9 F) 05/14/2021 1:57 PM CAR STORER Respiratory Rate 16 05/14/2021 1:57 PM CAR STORER Oxygen Saturation 98% 05/14/2021 1:57 PM CAR STORER Inhaled Oxygen Concentration - - Weight 64.4 kg (142 lb) 05/14/2021 1:57 PM CAR STORER w ith shoes Height 154.9 cm (5' 1 ) 05/14/2021 1:57 PM CAR STORER Body Mass Index 26.83 05/14/2021 1:57 PM CAR STORER Plan of Treatment Not on file Procedures Procedure Name Priority Date/Time Associated Diagnosis Comments HEPATITIS C ANTIBODY Routine 12/02/2020 10:44 AM CDT Psoriasis vulgaris High risk medication use DIAGNOSTIC MAMMOGRAM BILATERAL W ANGEL Routine 07/30/2015 9:57 AM CDT from Last 3 Months or Most Recently Relevant to Health Maintenance Results * Hepatitis C antibody (12/02/2020 10:44 AM CDT) Hep C Ab Nonreactive Nonreactive FLORES RAMÍREZ Comment:Antibodies to HCV no t detected. Does NOT exclude the possibility of recent exposure to HCV. Blood specimen (specimen) 12/02/2020 10:44 AM CDT 12/02/2020 11:20 AM CDT us Smith Navarro MD LAB MICROBIOLOGY - GEN ERAL ORDERABLES Edited Result - Final FLORES SAINI [facility] [place] [address] * Diagnostic Mammogram Bilateral W Angel (07/30/2015 9:57 AM CDT) Anatomical Region Laterality Modality Breast Bilateral Mammography 07/30/2015 9:57 AM CDT Narrative 07/30/2015 11:56 AM CDT SUNSHINE JUÁREZ M.D. ANDER CERNA M.D. FINAL REPORT The radiology attending physician has personally reviewed this study, and has reviewed and/or edited this written report and agrees with it. ACC# Date Time Exam [id number] Jul 30, 2015 09:57:00 [facility] [id number] Dig Breast Angel Zander Technologist(s): Katie Reynoso; ; [id number] Jul 30, 2015 09:57:00 [facility] 66838 Diag Mammogram Bilateral Technologist(s): Katie Reynoso; ; [id number] Jul 30, 2015 10:18:00 [facility] 10919 Breast US unilateral, ltd R ACC# Date Time Exam [id number] Jul 30, 2015 09:57:00 [facility] [address] Dig Breast Angel Zander Technologist(s): Katie Reynoso; ; [id number] Jul 30, 2015 09:57:00 [facility] 52726 Diag Mammogram Bilateral Technologist(s): Katie Reynoso; ; [id number] Jul 30, 2015 10:18:00 [facility] 62209 Breast US unilateral, ltd R EXAMINATION: BILATERAL [...] It is noted entirely included on the [id number] in either projection. Changes of prior breast [...] been scheduled to return to the [facility] for an ultrasound-guided core needle biopsy of the right breast on 07/31/2015 at 9:30 a.m.. OVERALL FINAL ASSESSMENT: BI-RADS Category 4C: Suspicious abnormality. High suspicion for malignancy. Requested By: Dictated By: ANDER CERNA M.D. on Jul 30 2015 11:47A This document has been electronically signed by: SUNSHINE JUÁREZ M.D. on Jul 30 2015 11:56A [id number] Procedure Note Provider, MD Renetta - 09/13/2016 SUNSHINE JUÁREZ M.D. ANDER CERNA M.D. FINAL REPORT The radiology attending physician has personally reviewed this study, and has reviewed and/or edited this written report and agrees with it. ACC# Date Time Exam [id number] Jul 30, 2015 09:57:00 [facility] [address]676 Dig Breast Angel Zander Technologist(s): Katie Reynoso; ; [id number] Jul 30, 2015 09:57:00 [facility] 37118 Diag Mammogram Bilateral Technologist(s): Katie Reynoso; ; [id number] Jul 30, 2015 10:18:00 C 48145 Breast US unilateral, ltd R ACC# Date Time Exam [id number] Jul 30, 2015 09:57:00 [facility] 80956 Dig Breast Angel Zander Technologist(s): Katie Reynoso; ; [id number] Jul 30, 2015 09:57:00 C 76184 Diag Mammogram Bilateral Technologist(s): Katie Reynoso; ; [id number] Jul 30, 2015 10:18:00 C 32312 Breast US unilateral, ltd R EXAMINATION: BILATERAL [...] It is noted entirely included on the [id number] in either projection. Changes of prior breast [...] been scheduled to return to the Breast [facility] for an ultrasound-guided core needle biopsy of the right breast on 07/31/2015 at 9:30 a.m.. OVERALL FINAL ASSESSMENT: BI-RADS Category 4C: Suspicious abnormality. High suspicion for malignancy. Requested By: Dictated By: ANDER CERNA M.D. on Jul 30 2015 11:47A This document has been electronically signed by: SUNSHINE JUÁREZ M.D. on Jul 30 2015 11:56A [id number] Historical Provider MD [facility]ED[facility] Stefani l Result from Last 3 Months or Most Recently Relevant to Health Maintenance Insurance HEALTHCARE HMO [facility] HEALTHCARE HMO [facility] HEALTHC[facility] HMO Care Teams Childcare Worker Relationship Specialty Start Date End Date Brian Austin MD [address] [place] [address] PCP - General 08/12/16
[2024-06-23 12:48] LABS: Free T4 Free Thyroxine 1.22 ng/dL (0.78-2.19)
[2024-06-23 12:52] LABS: Free T3 3.24 pg/mL (2.45-5.93)
== END 2024-06-23 11:50 | disposition home or self-care (01) ==
LOC: ANHLAB 11:51
PROVIDERS: PCP Clinical Nurse Specialist; Visit Provider Clinical Nurse Specialist
DX: E03.9 Hypothyroidism, unspecified (principal)
CPT/HCPCS: 36415; 84439; 84443; 84481

== ENCOUNTER 2024-07-03 12:46 | Outpatient (CLI) | payer MEDICARE, SELFPAY ==
--- NOTE | ~2024-07-03 | XR_ITS ---
Lumbosacral Spine: AP and lateral views Clinical History: Pain Findings: The normal lordotic curve is maintained. No fracture or subluxation seen. There is moderate to advanced degenerative disc narrowing at L5-S1. There is moderate facet arthropathy in the lumbar spine. The sacroiliac joints are normally outlined. Impression: [id number] degenerative spondylosis overall, as above. Reviewed, dictated and finalized at location . SIONS REPAIR TECHNICIAN Impression: [id number] degenerative spondylosis overall, as above.
--- OUTSIDE RECORDS SUMMARY | 2024-07-03 14:26 | XMS_ITS | Clinical Summary ---
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
--- OUTSIDE RECORDS SUMMARY | 2024-07-03 14:26 | XMS_ITS | Referral Summary ---
Author Organization [facility] Address 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 Gender Identity Female 11/17/2017 11:02 AM CDT Sexual Orientation Not on file Last Filed Vital Signs Vital Sign Reading Time Taken Comments Blood Pressure 126/79 05/14/2021 1:57 PM CARGO TANK MECHANIC Pulse 70 05/14/2021 1:57 PM CARGO TANK MECHANIC Temperature 36.6 C (97.9 F) 05/14/2021 1:57 PM CARGO TANK MECHANIC Respiratory Rate 16 05/14/2021 1:57 PM CARGO TANK MECHANIC Oxygen Saturation 98% 05/14/2021 1:57 PM CARGO TANK MECHANIC Inhaled Oxygen Concentration - - Weight 64.4 kg (142 lb) 05/14/2021 1:57 PM CARGO TANK MECHANIC w ith shoes Height 154.9 cm (5' 1 ) 05/14/2021 1:57 PM CARGO TANK MECHANIC Body Mass Index 26.83 05/14/2021 1:57 PM CARGO TANK MECHANIC Plan of Treatment Not on file Insurance [employer] H[employer] Care Teams Sander Wooden Pencils Relationship Specialty Start Date End Date Brian Austin MD [address] [place] [address] PCP - General 08/12/16
--- OUTSIDE RECORDS SUMMARY | 2024-07-03 14:26 | XMS_ITS | Clinical Summary ---
Author Organization [facility] Address [address] [facility] [place] [address] Care Team Providers Care Department Of Natural Resources Officer Name Role Phone Brian Austin MD Primary Care Provider [phone] Allergies No known active allergies Medications FLUOXETINE 10 mg capsule TK 1 C PO QD 5 10/06/2017 Activ e losartan-hydroC HLOROthiazide (HYZAAR) 50-12.5 mg per tablet 07/20/2016 Active simvastatin (ZOCOR) 40 mg tablet 07/20/2016 Active clobetasol-emol lient (TEMOVATE E) 0.05 % cream 08/06/2016 Act eligio levothyroxine (SYNTHROID, LEVOTHROID) 100 mcg tablet Take 100 mcg by mouth 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 Active Active Problems Problem Noted [...] on file Legal Sex Female 2:34 AM CORRESPONDENCE COORDINATOR Gender Identity Female 11/17/2017 11:02 AM CDT Sexual Orientation Not on file Obstetrics History Last Filed Vital Signs Vital Sign Reading Time Taken Comments Blood Pressure 126/79 05/14/2021 1:57 PM CORRESPONDENCE COORDINATOR Pulse 70 05/14/2021 1:57 PM CORRESPONDENCE COORDINATOR Temperature 36.6 C (97.9 F) 05/14/2021 1:57 PM CORRESPONDENCE COORDINATOR Respiratory Rate 16 05/14/2021 1:57 PM CORRESPONDENCE COORDINATOR Oxygen Saturation 98% 05/14/2021 1:57 PM CORRESPONDENCE COORDINATOR Inhaled Oxygen Concentration - - Weight 64.4 kg (142 lb) 05/14/2021 1:57 PM CORRESPONDENCE COORDINATOR w ith shoes Height 154.9 cm (5' 1 ) 05/14/2021 1:57 PM CORRESPONDENCE COORDINATOR Body Mass Index 26.83 05/14/2021 1:57 PM CORRESPONDENCE COORDINATOR Plan of Treatment Not on file Insurance HMO [facility] HMO/PPO Address[facility] [address] [place] [address] [facility] [employer] [facility]MO Care Teams Department Of Natural Resources Officer Relationship Specialty Start Date End Date Brian Austin MD [address] [place] [address] PCP - General 08/12/16
== END 2024-07-03 12:47 | disposition home or self-care (01) ==
PROVIDERS: PCP Clinical Nurse Specialist; Visit Provider Clinical Nurse Specialist
DX: M47.896 Other spondylosis, lumbar region (principal)
CPT/HCPCS: 72100